=== PATIENT | female | born 1930 | race Caucasian/White ===

== ENCOUNTER → 2018-04-04 | Outpatient (CLI) | payer MEDICARE ==
[~2018-04-04] MED LIST: ASP325 PO; ASPI-757 PO; ATE50 PO; CARV12.577 PO; CLO75 PO; ENA5 PO; EYE DROPS; EZE10 PO; FAMC500T19 PO; LIS10 PO; LOPE-109 PO; LOR5 PO; LUTE20CA11 PO; MET500 PO; METF-421 PO; OLME1TAB67 PO; ONDA4TAB PO; PRE20 PO; SIM10 PO; TRA50 PO; TRIBENZOR PO
[2018-04-04 13:15] LABS: PLATELET COUNT, AUTOMATED 231 K/uL (150-450)
== END ==
LOC: LAB 12:54
PROVIDERS: ATTEND Family Medicine
DX: E11.9 Type 2 diabetes mellitus without complications (principal)
CPT/HCPCS: 36415; 82040; 82247; 82310; 82374; 82435; 82565; 82947; 83036; 84075; 84132; 84155; 84295; 84450; 84460; 84520; 85025

== ENCOUNTER 2018-12-15 15:58 | Inpatient (IN) | payer MEDICARE ==
[~2018-12-15] VITALS: Ht 160 cm; Wt 55.3 kg
[~2018-12-15 15:58] MED LIST changes: -METF-421 PO; +METF-452 PO
--- NOTE | 2018-12-15 16:02 | ER Report ---
History and Physical Time Seen By MD: 16:02 HPI/ROS CHIEF COMPLAINT: change in vision, confusion HISTORY OF PRESENT ILLNESS: PT started at noon yesterday with sudden onset of Headache, blurred vision, and confusion. Pt not sure if it was both eyes or just one eye. Pt took two aspirin yesterday and the headache went away. Daughter still feels that she is confused. PT has had no weakness. Pt does have hx of afib and is on aspirin 325 only for coagulation. Daughter concerned she may have uti. Pt denies dysuria at this time. No fevers. no uri symptoms. no change in bm. REVIEW OF SYSTEMS: Constitutional: No fever, no chills. Eyes: No discharge. + blurred vision ENT: No sore throat. Cardiovascular: No chest pain, no palpitations. Respiratory: No cough, no shortness of breath. Gastrointestinal: No abdominal pain, no vomiting. Genitourinary: No hematuria. Musculoskeletal: No back pain. Skin: No rashes. Neurological: + headache, + confusion Allergies: Coded Allergies: hydrocodone (Verified Allergy, Mild, 02/11/12) codeine (Verified Allergy, Unknown, 02/11/12) Home Meds Active Scripts Metformin Hcl (METFORMIN HCL) 1,000 Mg Tablet, 1 TAB PO BID for 90 Days, #180 TAB 4 Refills Prov:RIGOBERTO CHIRINOS MD 05/02/18 Reported Medications Loperamide Hcl (ANTI-DIARRHEAL) Unknown Strength Tablet, 1 TAB PO PRN 04/04/18 Aspirin (ASPIRIN) 325 Mg Tablet, 1 TAB PO HS, TAB 04/04/18 Carvedilol (Coreg) 12.5 Mg Tablet, 1 TAB PO HS 08/02/11 Past Medical/Surgical History pmhx: afib, hyperlipid, htn, pneumonia, divertic, osteoarhritis, dm Pshx: petty, hyster, total hip, left shoulder Reviewed Nurses Notes: Yes Old Medical Records Reviewed: Yes Hx Smoking: No Smoking Status: Never Smoker Hx Substance Use Disorder: No Hx Alcohol Use: No Constitutional Vital Sign - Last 24 Hours 12/15/18 12/15/18 12/15/18 12/15/18 16:06 16:07 17:00 17:30 Temp 98.3 Pulse 83 88 75 Resp 18 B/P (MAP) 171/106 171/106 (127) 158/93 (114) 152/90 (110) Pulse Ox 90 88 90 O2 Delivery Room Air Physical Exam General Appearance: The patient is alert, has no immediate need for airway protection and no signs of toxicity. Eyes: Pupils equal and round no pallor or injection, EOMI ENT: no pharyngeal erythema or exudates, Mucous membranes are moist, TM are nl b/l Respiratory: There are no retractions, lungs are clear to auscultation. Cardiovascular: Regular rate and rhythm. pulses are equal and symmetrical Gastrointestinal: Abdomen is soft and non tender, no masses, bowel sounds normal, no guarding, no rigidity or rebound Neurological: Cranial nerves II-XII grossly intact, no sensory or motor loss. Upper and lower strength 5/5 b/l; no dysmetria or pronator drift Skin: Warm and dry, no rashes. Musculoskeletal: Neck is supple non tender, no vertebral tenderness Extremities are non tender, non swollen and have full range of motion. DIFFERENTIAL DIAGNOSIS: After history and physical exam differential diagnosis was considered for stroke, intracranial bleed, uti, electrolyte abnl Medical Decision Making Data Points Result Diagram: 12/15/18 1620 12/15/18 1620 Laboratory Hematology Test 12/15/18 16:20 12/15/18 16:26 12/15/18 17:08 Red Blood Count 5.11 M/uL (4.17-5.56) Mean Corpuscular Volume 88.2 fL (80.0-96.0) Mean Corpuscular Hemoglobin 29.7 pg (26.0-33.0) Mean Corpuscular Hemoglobin Concent 33.7 g/dL (32.0-36.0) Red Cell Distribution Width 14.0 % (11.5-14.5) Mean Platelet Volume 8.8 fL (7.2-11.1) Neutrophils (%) (Auto) 67.8 % (39.4-72.5) Lymphocytes (%) (Auto) 19.1 % (17.6-49.6) Monocytes (%) (Auto) 10.6 % (4.1-12.4) Eosinophils (%) (Auto) 1.7 % (0.4-6.7) Basophils (%) (Auto) 0.8 % (0.3-1.4) Nucleated RBC Relative Count (auto) 0.1 /100WBC Neutrophils # (Auto) 4.1 K/uL (2.0-7.4) Lymphocytes # (Auto) 1.1 K/uL (1.3-3.6) Monocytes # (Auto) 0.6 K/uL (0.3-1.0) Eosinophils # (Auto) 0.1 K/uL (0.0-0.5) Basophils # (Auto) 0.1 K/uL (0.0-0.1) Nucleated RBC Absolute Count (auto) 0.01 K/uL Prothrombin Time 13.9 seconds (12.0-14.4) Prothromb Time International Ratio 1.06 Activated Partial Thromboplast Time 26 seconds (23-35) Sodium Level 138 mmol/L (137-145) Potassium Level 4.5 mmol/L (3.5-5.0) Chloride Level 102 mmol/L (98-107) Carbon Dioxide Level 26 mmol/L (22-31) Blood Urea Nitrogen 18 mg/dl (7-18) Creatinine 0.80 mg/dl (0.52-1.04) Glomerular Filtration Rate Calc > 60.0 Random Glucose 185 mg/dl (75-110) Calcium Level 9.5 mg/dl (8.4-10.2) Total Bilirubin 1.3 mg/dl (0.2-1.3) Aspartate Amino Transf (AST/SGOT) 24 U/L (0-35) Alanine Aminotransferase (ALT/SGPT) 14 U/L (0-56) Alkaline Phosphatase 71 U/L (0-126) Troponin I < 0.012 ng/ml Total Protein 8.3 g/dl (6.3-8.2) Albumin 4.3 g/dl (3.5-5.0) Whole Blood Glucose 163 mg/DL (75-110) Urine Color Yellow Urine Clarity Clear Urine pH 5.0 pH (4.8-9.5) Urine Specific Rubicon 1.016 Urine Protein Negative mg/dL (NEGATIVE) Urine Glucose (UA) Negative mg/dL (NEGATIVE) Urine Ketones Negative mg/dL (NEGATIVE) Urine Blood Small (NEGATIVE) Urine Nitrite Negative (NEGATIVE) Urine Bilirubin Negative (NEGATIVE) Urine Urobilinogen Negative mg/dL (0.2-1.9) Urine Leukocyte Esterase Negative (NEGATIVE) Urine RBC 1 /HPF (0-2/HPF) Urine WBC 2 /HPF (0-5/HPF) Urine Squamous Epithelial Cells Many /LPF (NONE-FEW) Urine Transitional Epithelial Cells Few /LPF (NONE-FEW) Urine Bacteria Few /HPF (NONE-FEW) Urine Mucus None /HPF (NONE-FEW) Chemistry Test 12/15/18 16:20 12/15/18 16:26 12/15/18 17:08 White Blood Count 6.0 k/uL (4.5-11.0) Red Blood Count 5.11 M/uL (4.17-5.56) Hemoglobin 15.2 g/dL (12.0-16.0) Hematocrit 45.1 % (34.0-47.0) Mean Corpuscular Volume 88.2 fL (80.0-96.0) Mean Corpuscular Hemoglobin 29.7 pg (26.0-33.0) Mean Corpuscular Hemoglobin Concent 33.7 g/dL (32.0-36.0) Red Cell Distribution Width 14.0 % (11.5-14.5) Platelet Count 235 K/uL (150-450) Mean Platelet Volume 8.8 fL (7.2-11.1) Neutrophils (%) (Auto) 67.8 % (39.4-72.5) Lymphocytes (%) (Auto) 19.1 % (17.6-49.6) Monocytes (%) (Auto) 10.6 % (4.1-12.4) Eosinophils (%) (Auto) 1.7 % (0.4-6.7) Basophils (%) (Auto) 0.8 % (0.3-1.4) Nucleated RBC Relative Count (auto) 0.1 /100WBC Neutrophils # (Auto) 4.1 K/uL (2.0-7.4) Lymphocytes # (Auto) 1.1 K/uL (1.3-3.6) Monocytes # (Auto) 0.6 K/uL (0.3-1.0) Eosinophils # (Auto) 0.1 K/uL (0.0-0.5) Basophils # (Auto) 0.1 K/uL (0.0-0.1) Nucleated RBC Absolute Count (auto) 0.01 K/uL Prothrombin Time 13.9 seconds (12.0-14.4) Prothromb Time International Ratio 1.06 Activated Partial Thromboplast Time 26 seconds (23-35) Glomerular Filtration Rate Calc > 60.0 Calcium Level 9.5 mg/dl (8.4-10.2) Total Bilirubin 1.3 mg/dl (0.2-1.3) Aspartate Amino Transf (AST/SGOT) 24 U/L (0-35) Alanine Aminotransferase (ALT/SGPT) 14 U/L (0-56) Alkaline Phosphatase 71 U/L (0-126) Troponin I < 0.012 ng/ml Total Protein 8.3 g/dl (6.3-8.2) Albumin 4.3 g/dl (3.5-5.0) Whole Blood Glucose 163 mg/DL (75-110) Urine Color Yellow Urine Clarity Clear Urine pH 5.0 pH (4.8-9.5) Urine Specific Rubicon 1.016 Urine Protein Negative mg/dL (NEGATIVE) Urine Glucose (UA) Negative mg/dL (NEGATIVE) Urine Ketones Negative mg/dL (NEGATIVE) Urine Blood Small (NEGATIVE) Urine Nitrite Negative (NEGATIVE) Urine Bilirubin Negative (NEGATIVE) Urine Urobilinogen Negative mg/dL (0.2-1.9) Urine Leukocyte Esterase Negative (NEGATIVE) Urine RBC 1 /HPF (0-2/HPF) Urine WBC 2 /HPF (0-5/HPF) Urine Squamous Epithelial Cells Many /LPF (NONE-FEW) Urine Transitional Epithelial Cells Few /LPF (NONE-FEW) Urine Bacteria Few /HPF (NONE-FEW) Urine Mucus None /HPF (NONE-FEW) Coagulation Test 12/15/18 16:20 Prothrombin Time 13.9 seconds Prothromb Time International Ratio 1.06 Activated Partial Thromboplast Time 26 seconds Urinalysis Test 12/15/18 17:08 Urine Color Yellow Urine Clarity Clear Urine pH 5.0 pH (4.8-9.5) Urine Specific Rubicon 1.016 Urine Protein Negative mg/dL (NEGATIVE) Urine Glucose (UA) Negative mg/dL (NEGATIVE) Urine Ketones Negative mg/dL (NEGATIVE) Urine Blood Small (NEGATIVE) Urine Nitrite Negative (NEGATIVE) Urine Bilirubin Negative (NEGATIVE) Urine Urobilinogen Negative mg/dL (0.2-1.9) Urine Leukocyte Esterase Negative (NEGATIVE) Urine RBC 1 /HPF (0-2/HPF) Urine WBC 2 /HPF (0-5/HPF) Urine Squamous Epithelial Cells Many /LPF (NONE-FEW) Urine Transitional Epithelial Cells Few /LPF (NONE-FEW) Urine Bacteria Few /HPF (NONE-FEW) Urine Mucus None /HPF (NONE-FEW) EKG/Imaging Imaging see report ED Course/Re-evaluation ED Course check labs, ct 12/15/2018 5:13:49 pm Radiologist called. Pt with a subacute stroke. Will speak with family. 12/15/2018 5:24:10 pm Spoke with family and they are now thinking about starting eliquis at a later time but not sure. Will speak with Neurology. 12/15/2018 5:43:[address] Edmonds, neurologist at [facility], who feels pt should be admitted to hospital. Recommend ECHO, CT angiogram then MRI. Recommended permissinve htn (as high as 220/120). As for anticoagulation he recommend holding all anticoagulation for 7-14 days post stroke due to high risk of bleed. He did no tfeel pt needs to be transferred as long as we would be able to get an echo in her admission. will speak with our hospitalist. [facility] accepts patient. Pt is happy to stay. Pt did not want to be transferred to [place]. Decision to Disposition Date: Dec 15, 2018 Decision to Disposition Time: 18:21 Depart Departure Latest Vital Signs Vital Signs Date Time Temp Pulse Resp B/P (MAP) Pulse Ox O2 Delivery O2 Flow Rate FiO2 12/15/18 17:30 75 152/90 (110) 90 12/15/18 16:06 98.3 18 Room Air Impression: Primary Impression: CVA (cerebral vascular accident) Additional Impression: Afib Condition: Condition Unchanged Disposition: Admitted from ER Referrals: RIGOBERTO CHIRINOS MD (PCP) Problem Qualifiers Primary Impression: CVA (cerebral vascular accident) CVA mechanism: unspecified Qualified Codes: I63.9 - Cerebral infarction, unspecified Additional Impression: Afib Atrial fibrillation type: chronic Qualified Codes: I48.2 - Chronic atrial fibrillation KADI DOMINGUEZ DO Dec 15, 2018 16:02
[2018-12-15 16:26] LABS: PLATELET COUNT, AUTOMATED 235 K/uL (150-450)
--- NOTE | 2018-12-15 16:32 | EKG ---
FACILITY: [facility] PATIENT NAME: PARAMJIT VALENZUELA : [id number] MR: [id number] V: [id number] EXAM DATE: ORDERING PHYSICIAN: KADI DOMINGUEZ TECHNOLOGIST: LORI Álvarez Reason : Blood Pressure : / mmHG Vent. Rate : 078 BPM Atrial Rate : 087 BPM P-R Int : 000 ms QRS Dur : 060 ms QT Int : 350 ms P-R-T Axes : 000 030 -87 degrees QTc Int : 399 ms Atrial fibrillation Baseline artifact in V3-4 makes strict interpretation difficult No previous ECGs available Confirmed by PUSHPA RAE ([id number]) on 12/15/2018 5:18:30 PM Referred By: Confirmed By:PUSHPA RAE
[2018-12-15 16:35] LABS: INR 1.06
--- NOTE | 2018-12-15 17:06 | RADIOLOGY IMAGING REPORT ---
[place] [facility] [place]IENT NAME: Natasha Tijerina : 1930 MR: [id number] V: [id number] EXAM DATE: ORDERING PHYSICIAN: KADI DOMINGUEZ TECHNOLOGIST: Location: [facility] [place] Patient: Natasha Tijerina : 1930 Visit/Account:[id number] Date of Sevice: 12/15/2018 Study: CT scan of the brain without intravenous contrast. Indication:Altered metal status Comparison study: November 25, 2010 Technique: Multiple axial images were obtained through the brain without the use of intravenous contr ast. One of the following dose optimization techniques was utilized in the performance of this exam: Autom ated exposure control; adjustment of the mA and/or kV according to the patient's size; or use of an i terative reconstruction technique. Specific details can be referenced in the facility's radiology C T exam operational policy. The examination demonstrates no evidence of acute intracranial hemorrhage. There is no evidence of ex tra-axial collection or hydrocephalus. There is moderate atrophy present. There is no evidence of intracranial mass lesion. There is loss of the watt-white junction along the anterior medial right occipital and posterior medi al right temporal region. This is consistent with an evolving infarct. This is subacute in appearance . There is no acute hemorrhage associated with this finding. The bony structures are unremarkable. IMPRESSION: Subacute stroke involving the medial posterior right temporal and medial anterior right o ccipital region. There is no acute hemorrhage associated with this finding. There is moderate atrophy noted. Dr. Dominguez was notified of these findings at 4:58 PM Report Dictated By: Lorenzo Martell at 12/15/2018 4:54 PM Report E-Signed By: Lorenzo Martell at 12/15/2018 5:03 PM WSN:[id number]
[2018-12-15 18:32] VITALS: BP_SYST 147; BP_SYST 166; BP_DIAS 104; BP_DIAS 123
[2018-12-15] MEDS ORDERED: METF-452 PO (19:21)
[2018-12-15] MEDS ORDERED: LABETALOL HCL 20 MG/4 ML SYR IVP PRN (19:50)
[2018-12-15] MEDS ORDERED: INFLUENZA VIRUS VAC 0.5ML SYR IM ONLY ONE (19:50)
--- NOTE | 2018-12-15 20:25 | History & Physical ---
History of Present Illness History of Present Illness 88yo female with a h/o T2DM, HTN and atrial fibrillation who was brought to the ER for confusion and difficulty with vision. Most of the history is from the patient's daughter. A couple of days ago the patient started reporting some vague headaches. Yesterday, the patient suddenly couldn't read print or see the television. She started having trouble finding words. Her daughter told the patient to sit in the living room and the patient walked to the wrong room. The daughter thought the patient had a UTI. The symptoms persisted today, so she brought her to the ER. The patient denies cp/palpitations/s ob/dysphagia/dysuria/n/v/f/c/diarrhea/focal weakness. The patient hasn't started any new medications. History Problems: (1) T2DM (type 2 diabetes mellitus) Status: Chronic (2) Hypertension Status: Chronic (3) Afib Status: Chronic (4) Electrocution (5) History of humerus fracture Status: Chronic (6) History of hip replacement Status: Chronic Home Meds Active Scripts Metformin Hcl (METFORMIN HCL) 1,000 Mg Tablet, 1 TAB PO HS for 90 Days, #180 TAB 4 Refills Prov:PUSHPA RAE MD 12/15/18 Reported Medications Aspirin (ASPIRIN) 325 Mg Tablet, 1 TAB PO HS, TAB 04/04/18 Carvedilol (Coreg) 12.5 Mg Tablet, 1 TAB PO HS 08/02/11 Discontinued Reported Medications Loperamide Hcl (ANTI-DIARRHEAL) Unknown Strength Tablet, 1 TAB PO PRN 04/04/18 Allergies: Coded Allergies: hydrocodone (Verified Allergy, Mild, 02/11/12) codeine (Verified Allergy, Unknown, 02/11/12) Patient History: FH: HTN (hypertension) BROTHER OR SISTER Other Social/Family Hx She lives near [place]. Her daughter helps manage her medications. The patient is . She rarely drinks alcohol and has never used tobacco. Hx Smoking: No Smoking Status: Never Smoker Caffeine Intake: Coffee, Soda Caffeine/Cups Per Day: 4 cups decaff Hx Alcohol Use: Yes (Once a month maybe a beer) Alcohol Used: Beer Hx Substance Use Disorder: No Social Drug Use: Never Review of Systems All Systems Reviewed/Normal: Yes, Except as Noted Exam Vital Signs Vital Signs Date Time Temp Pulse Resp B/P (MAP) Pulse Ox O2 Delivery O2 Flow Rate FiO2 12/15/18 18:32 98.7 70 16 166/104 (124) 92 Room Air General Appearance: Alert, Awake, No Acute Distress Neuro: Other (Visual field deficit in LUQ in eyes bilaterally on confrontational exam. EOMI. Pupils symmetric. Pearl Maker/abduction of fingers/hip flexion/dorsiflexion/plantar flexion is symmetric and strong. Normal sensation to light touch. ) Cardiovascular: Other (Irreg, irreg, no m/r/g.) Respiratory: Clear to Auscultation GI: Abd Soft and Non-Tender Extremities: No Edema Integumentary: No Jaundice, No Cyanosis Medical Decision Making Data Points Result Diagram: 12/15/18 1620 12/15/18 1620 Item Value Date Time Total Bilirubin 1.3 mg/dl 12/15/18 1620 Aspartate Amino Transf (AST/SGOT) 24 U/L 12/15/18 1620 Alanine Aminotransferase (ALT/SGPT) 14 U/L 12/15/18 1620 Alkaline Phosphatase 71 U/L 12/15/18 1620 Troponin I < 0.012 ng/ml 12/15/18 1620 Neutrophils (%) (Auto) 67.8 % 12/15/18 1620 Lymphocytes (%) (Auto) 19.1 % 12/15/18 1620 Monocytes (%) (Auto) 10.6 % 12/15/18 1620 Eosinophils (%) (Auto) 1.7 % 12/15/18 1620 Prothromb Time International Ratio 1.06 12/15/18 1620 Urine RBC 1 /HPF 12/15/18 1708 Urine WBC 2 /HPF 12/15/18 1708 Urine Squamous Epithelial Cells Many /LPF H 12/15/18 1708 Urine Transitional Epithelial Cells Few /LPF 12/15/18 1708 Urine Bacteria Few /HPF 12/15/18 1708 EKG / Imaging EKG Interpretation Vent. Rate : 078 BPM Atrial Rate : 087 BPM P-R Int : 000 ms QRS Dur : 060 ms QT Int : 350 ms P-R-T Axes : 000 030 -87 degrees QTc Int : 399 ms Atrial fibrillation Baseline artifact in V3-4 makes strict interpretation difficult No previous ECGs available Confirmed by PUSHPA RAE ([id number]) on 12/15/2018 5:18:[address] - Subacute stroke involving the medial posterior right temporal and medial anterior right occipital region. There is no acute hemorrhage associated with this finding. There is moderate atrophy noted. Assessment and Plan Problems: (1) CVA (cerebral vascular accident) Status: Acute Assessment & Plan: She presented with over 24 hours of LUQ visual field deficits bilaterally, word finding difficulty and mild confusion. She was found to have a subacute stroke in the medial posterior right temporal and medial anterior right occipital region by CT. Neurology was consulted and they recommended getting a CTA of the head/neck and echocardiogram. They recommended no anticoagulation for 7-14 days. Will ask OT/PT/ST to evaluate. (2) Afib Status: Chronic Assessment & Plan: Chronically in atrial fibrillation for many years. She has been just on ASA for stroke prophylaxis for a couple years secondary to a serious bleeding event after a fall on warfarin. However, the patient and daughter are willing to consider warfarin again with home monitoring. She is rate controlled on Coreg and it is just at HS. Will hold for now because of concern of dropping the blood pressure. Follow on telemetry. If the patient and daughter want to try warfarin, will have to do as an outpatient. See above. (3) Hypertension Status: Chronic Assessment & Plan: Chronically on Coreg. See above. (4) T2DM (type 2 diabetes mellitus) Status: Chronic Assessment & Plan: Chronically on Metformin. Will hold for the CTA. Glucose check AC and HS with SSI level 2 to cover. Check HgA1c. (5) History of humerus fracture Status: Chronic Assessment & Plan: The patient has had multiple fractures on the left with hardware in place. She is limited mobility/use in the arm secondary to it. (6) History of hip replacement Status: Chronic Assessment & Plan: She walks with a significant limp, per her daughter, since the repair. Copies to: JASON LOMELI MD ; Venous Thromboembolism Antithrombotics Is Pt On Any Antithrombotics?: No Exam Sepsis Risk: No Definite Risk Problem Qualifiers (1) CVA (cerebral vascular accident): CVA mechanism: unspecified Qualified Codes: I63.9 - Cerebral infarction, unspecified (2) Afib: Atrial fibrillation type: chronic Qualified Codes: I48.2 - Chronic atrial fibrillation PUSHPA RAE MD Dec 15, 2018 20:25
[2018-12-15] MEDS: INSULIN HUM LISPRO 100 UN/ML 3 ML VIAL SUBQ PRN (21:51)
[2018-12-15 22:32] VITALS: BP 139/87
[2018-12-16 02:57] VITALS: BP 176/116
[2018-12-16] MEDS ORDERED: NS(*) 0.9% 50 ML BAG 50 ML ONE (07:22)
[2018-12-16] MEDS ORDERED: IOPAMIDOL 76% 100 ML INFUS BTL 100 ML ONE (07:22)
[2018-12-16 07:25] VITALS: BP 145/108
--- NOTE | 2018-12-16 09:09 | RADIOLOGY IMAGING REPORT ---
FACILITY: [facility] - [place] PATIENT NAME: Natasha Tijerina : 1930 MR: [id number] V: [id number] EXAM DATE: ORDERING PHYSICIAN: PUSHPA RAE TECHNOLOGIST: Location: [facility] Patient: Natasha Tijerina : 1930 Visit/Account:[id number] Date of Sevice: 12/16/2018 EXAMINATION: CTA neck with IV contrast CTA head with IV contrast HISTORY: Subacute stroke. COMPARISON: Brain MRI from 10/09/[address] head from 12/15/2018. TECHNIQUE: Overlapping thin sections were obtained during a bolus of IV contrast from the aortic ar ch through the vertex. Reconstruction of the source data set includes multiplanar 2D in the bilateral oblique planes, and 3D coronal and axial thin slab MIP series. [employer] images have been store d on PACS. Stenosis of the internal carotid arteries are calculated using NASCET criteria. CONTRAST: 75 mL of IV Isovue-370. One of the following dose optimization techniques was utilized in the performance of this exam: Autom ated exposure control; adjustment of the mA and/or kV according to the patient's size; or use of an i terative reconstruction technique. Specific details can be referenced in the facility's radiology C T exam operational policy. FINDINGS: Aortic arch and great vessels: Configuration of the aortic arch is normal. There are moderate ather osclerotic calcifications of the arch with 50% stenosis at the origin of the right brachiocephalic ar honey. The proximal great vessels are moderately tortuous. There is patchy calcified plaque of the pro ximal left subclavian artery with up to 20% stenosis, and there is 50% stenosis of the left subclavia n artery due to soft plaque, after the left vertebral artery origin. Right CCA/ICA: The proximal common carotid artery is moderately tortuous. Calcified plaque of the c arotid bulb. 40% stenosis of the proximal internal carotid artery. Calcified plaque of the carotid si phon. Left CCA/ICA: Calcified plaque of the distal common carotid artery and the carotid bulb. 50% stenos is of the proximal internal carotid artery. The distal cervical internal carotid artery is moderately tortuous. Calcified plaque of the carotid siphon. Vertebrobasilar: The left vertebral artery is dominant with calcified plaque at the origin causing 50% stenosis. The right vertebral artery is smaller than the left, and there is occlusion in its orig in. Both vertebral arteries contribute to the basilar artery and there is some reflux of contrast int o the intradural and distal cervical right vertebral artery from the opposite side. [place]: Patent anterior communicating artery and bilateral small posterior communicating arteries. VASILIY circulation: Negative. MCA circulation: Negative. IT ASSISTANT circulation: The bilateral P1 and P2 segments are patent and symmetric. There is diminished cor tical branching in the right IT ASSISTANT territory in the area of subacute infarct. Additional non-angiographic findings: Mild degenerative changes of the spine. The thyroid is mildly heterogeneous with a coarse calcificati on in the right lobe. IMPRESSION: 1. Diminished cortical branching in the right IT ASSISTANT territory in the area of subacute infarct. No clot in the right P1 and P2 segments. 2. 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 The right vertebr al artery is the hypoplastic vertebral artery. 3. Atherosclerotic calcified plaque of the aortic arch with 50% stenosis at the origin of the right b rachiocephalic artery, patchy stenosis of the proximal left subclavian artery of up to 20%, and 50% s tenosis of the left subclavian artery distal to the left vertebral artery origin. 4. Calcified atherosclerotic plaque of the right carotid bulb with 40% stenosis of the proximal right internal carotid artery. 5. Calcified atherosclerotic plaque of the left carotid bulb with 50% stenosis of the proximal left i nternal carotid artery. Report Dictated By: Shey Rhoades MD at 12/16/2018 8:39 AM Repor E-Signed By: Shey Rhoades MD at 12/16/2018 9:05 AM WSN:[id number]
--- NOTE | 2018-12-16 09:10 | RADIOLOGY IMAGING REPORT ---
FACILITY: [facility] - [place] PATIENT NAME: Natasha Tijerina : 1930 MR: [id number] V: [id number] EXAM DATE: ORDERING PHYSICIAN: PUSHPA RAE TECHNOLOGIST: Location: [facility] Patient: Natasha Tijerina : 1930 Visit/Account:[id number] Date of Sevice: 12/16/2018 EXAMINATION: CTA neck with IV contrast CTA head with IV contrast HISTORY: Subacute stroke. COMPARISON: Brain MRI from 10/09/[address] head from 12/15/2018. TECHNIQUE: Overlapping thin sections were obtained during a bolus of IV contrast from the aortic ar ch through the vertex. Reconstruction of the source data set includes multiplanar 2D in the bilateral oblique planes, and 3D coronal and axial thin slab MIP series. Advertising Director images have been store d on PACS. Stenosis of the internal carotid arteries are calculated using NASCET criteria. CONTRAST: 75 mL of IV Isovue-370. One of the following dose optimization techniques was utilized in the performance of this exam: Autom ated exposure control; adjustment of the mA and/or kV according to the patient's size; or use of an i terative reconstruction technique. Specific details can be referenced in the facility's radiology C T exam operational policy. FINDINGS: Aortic arch and great vessels: Configuration of the aortic arch is normal. There are moderate ather osclerotic calcifications of the arch with 50% stenosis at the origin of the right brachiocephalic ar honey. The proximal great vessels are moderately tortuous. There is patchy calcified plaque of the pro ximal left subclavian artery with up to 20% stenosis, and there is 50% stenosis of the left subclavia n artery due to soft plaque, after the left vertebral artery origin. Right CCA/ICA: The proximal common carotid artery is moderately tortuous. Calcified plaque of the c arotid bulb. 40% stenosis of the proximal internal carotid artery. Calcified plaque of the carotid si phon. Left CCA/ICA: Calcified plaque of the distal common carotid artery and the carotid bulb. 50% stenos is of the proximal internal carotid artery. The distal cervical internal carotid artery is moderately tortuous. Calcified plaque of the carotid siphon. Vertebrobasilar: The left vertebral artery is dominant with calcified plaque at the origin causing 50% stenosis. The right vertebral artery is smaller than the left, and there is occlusion in its orig in. Both vertebral arteries contribute to the basilar artery and there is some reflux of contrast int o the intradural and distal cervical right vertebral artery from the opposite side. [place]: Patent anterior communicating artery and bilateral small posterior communicating arteries. VASILIY circulation: Negative. MCA circulation: Negative. PRODUCE DEPARTMENT SUPERVISOR circulation: The bilateral P1 and P2 segments are patent and symmetric. There is diminished cor tical branching in the right PRODUCE DEPARTMENT SUPERVISOR territory in the area of subacute infarct. Additional non-angiographic findings: Mild degenerative changes of the spine. The thyroid is mildly heterogeneous with a coarse calcificati on in the right lobe. IMPRESSION: 1. Diminished cortical branching in the right PRODUCE DEPARTMENT SUPERVISOR territory in the area of subacute infarct. No clot in the right P1 and P2 segments. 2. 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 The right vertebr al artery is the hypoplastic vertebral artery. 3. Atherosclerotic calcified plaque of the aortic arch with 50% stenosis at the origin of the right b rachiocephalic artery, patchy stenosis of the proximal left subclavian artery of up to 20%, and 50% s tenosis of the left subclavian artery distal to the left vertebral artery origin. 4. Calcified atherosclerotic plaque of the right carotid bulb with 40% stenosis of the proximal right internal carotid artery. 5. Calcified atherosclerotic plaque of the left carotid bulb with 50% stenosis of the proximal left i nternal carotid artery. Report Dictated By: Shey Rhoades MD at 12/16/2018 8:39 AM Repor E-Signed By: Shey Rhoades MD at 12/16/2018 9:05 AM WSN:[id number]
--- NOTE | 2018-12-16 11:12 | Hospitalist Progress Note ---
Subjective Progress Notes Subjective She was admitted with subacute stroke. She has no complaints this morning. She had no acute events overnight. Patient Complains of: Cardiovascular: No: Chest Pain Respiratory: No: Shortness of Breath Physical Exam Vital Signs Date Time Temp Pulse Resp B/P (MAP) Pulse Ox O2 Delivery O2 Flow Rate FiO2 12/16/18 04:24 84 12/16/18 02:57 98.6 18 176/116 (136) 94 Nasal Cannula 1.0 Intake and Output 12/16/18 00:00 Output Total 150 ml Balance -150 ml Output Urine Total 150 ml # Voids 2 General Appearance: Alert, Awake, No Acute Distress, Afebrile Neuro: No Gross deficits Cardiovascular: Regular Rate and Rhythm Respiratory: No Respiratory Distress, Clear to Auscultation GI: Soft and Non-Tender Extremities: Warm, Perfused; No Edema Psych: Alert & Oriented X3, Appropriate Mood & Affect Result Diagram: 12/15/18 1620 12/15/18 1620 Assessment and Plan Problems: (1) CVA (cerebral vascular accident) Status: Acute Assessment & Plan: She presented with over 24 hours of LUQ visual field deficits bilaterally, word finding difficulty and mild confusion. She was found to have a subacute stroke in the medial posterior right temporal and medial anterior right occipital region by CT. Neurology was consulted and they recommended getting a CTA of the head/neck, which showed 40-50% stenosis in carotids and diminished cortical branching in the right POLICE RECORDS CLERK territory in the area of infarct and occlusion of the right vertebral artery and echocardiogram is pending. They recommended no anticoagulation for 7-14 days. Will ask OT/PT/ ST to evaluate. (2) Afib Status: Chronic Assessment & Plan: Chronically in atrial fibrillation for many years. She has been just on ASA for stroke prophylaxis for a couple years secondary to a serious bleeding event after a fall on warfarin. However, the patient and daughter are willing to consider warfarin again with home monitoring. She is rate controlled on Coreg and it is just at HS. Will hold for now because of concern of dropping the blood pressure. Follow on telemetry. If the patient and daughter want to try warfarin, will have to do as an outpatient. See above. (3) Hypertension Status: Chronic Assessment & Plan: Chronically on Coreg. See above. (4) T2DM (type 2 diabetes mellitus) Status: Chronic Assessment & Plan: Chronically on Metformin. Will hold for the CTA. Glucose check AC and HS with SSI level 2 to cover. HgA1c is 7.6. (5) History of humerus fracture Status: Chronic Assessment & Plan: The patient has had multiple fractures on the left with hardware in place. She is limited mobility/use in the arm secondary to it. (6) History of hip replacement Status: Chronic Assessment & Plan: She walks with a significant limp, per her daughter, since the repair. Exam Sepsis Risk: No Definite Risk Problem Qualifiers (1) CVA (cerebral vascular accident): CVA mechanism: unspecified Qualified Codes: I63.9 - Cerebral infarction, unspecified (2) Afib: Atrial fibrillation type: chronic Qualified Codes: I48.2 - Chronic atrial fibrillation (3) Hypertension: Hypertension type: essential hypertension Qualified Codes: I10 - Essential (primary) hypertension MATHEW PATE CHECK CASHIER Dec 16, 2018 11:12
[2018-12-16 13:08] VITALS: Ht 160 cm; Wt 55.3 kg
--- NOTE | 2018-12-16 15:48 | NUR ---
Physical Therapy Impression PT eval complete. Pt was living independently prior to hospitalization. Currently Pt requires Min A for sit>supine, CGA to stand and CGA/Min A with cane and hand-hold assist to ambulate. Recommend either acute rehab or short-term subacute rehab prior to returning home living independently. Physical Therapy Goals 1. Mod I bed mobility. 2. Mod I transfers. 3. Mod I gait x 150' with appropriate assistive device. 4. Ascend/descend 3 stairs SBA. Patient's Goals
[2018-12-16 17:20] VITALS: BP 144/93
--- NOTE | 2018-12-16 17:31 | SPEECH INITIAL EVALUATION ---
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 BACKGROUND The patient is an 88-year old female admitted to [facility] on 12/15/18 with confusion, headaches, word finding deficits, and visual changes. CT scan revealed subacute CVA in the medial posterior R temporal and medial anterior R occipital region. Pt was referred for ST evaluation to analyze cognitive linguistic status and possible dysphagia s/p CVA. Primary Medical Diagnosis: CVA Past Medical Hx: Afib, HTN, DM2 Pain Scale (0-10): patient w/ no reports of pain. LOC / Participation: alert, cooperative Motor Speech: WFL; non-apraxic; non-dysarthric Voice: WFL Dysphagia: swallow status was screened with 3oz water test. No overt signs of aspiration or dysphagia. RN reporting no observed deficits during participation in meals or medication administration. COGNITIVE LINGUISTIC ASSESSMENT Pt was seen at the bedside for cognitive linguistic analysis using the [place] Cognitive Assessment, (Version 7.3) paired with informal evaluation procedures. The pts daughter and friend were present throughout encounter. The pt obtained a score of 20/30 on the MOCA, exhibiting mild to moderate cognitive linguistic deficits in the areas of temporal orientation, short-term memory, executive functioning, and visuospatial skills. Most notable area of impairment was seen in short-term memory. The pt struggled to retain task instructions, requiring multiple repetitions to consolidate information. The pts daughter indicated this appears to be near baseline with gradual decline in short-term memory for unspecified time period. Daughter provides assistance for completion of all IADL and some ADL tasks. She reports that the pt is visited 2x/day by a family member. Visuospatial deficits are new, with difficulty perceiving information in the LUQ. Relative areas of strength were noted in environmental orientation, situational orientation, attention, immediate memory, working memory, mental manipulations, mental abstraction, and expressive/receptive language skills. Word finding deficits appear to have resolved. The pt was appropriate in conversation with knowledge of medical etiology, although she does not recall events leading up to hospitalization or time spent in the ED. At this time, the pt appears to be functioning mildly below baseline from a strictly cognitive-linguistic standpoint. Daughter described existing systems to support the pt in her home environment, including use of a pillbox with external reminders for medication administration. Daughter did not endorse any history of medication errors. Recommend continued, daily supervision upon return to prior living environment including assistance with all IADL tasks. Acute visuospatial deficits may place the pt at an elevated risk for difficulty perceiving external compensatory systems, and difficulty attending to environmental obstacles. Brief course of ST is indicated in an acute care environment to provide patient and caregiver instruction in strategies to compensate for novel deficits and to support safe transition to prior living environment. RECOMMENDATIONS 1. ST 3x/wk 2. Short-term subacute rehab prior to home discharge with daily supervision and support for all IADLs (medication management, transportation, financial report service sales agent, and appointment management) PROGNOSIS: Good, strong family support, motivation to participate PLAN OF CARE Short Term Goals 1. The patient will independently utilize visual scanning strategies to attend to environmental obstacles and perceive established compensatory memory systems. 2. The patient will refer to external compensatory systems with min cues to support deficits in short-term memory for improved participation in daily routine. Thank you for this referral. Please call [phone] to contact with any questions or concerns. Suellen Bill M.S., CCC-ACUTE CARE ASSISTANT [*] MISHAD
[2018-12-16] MEDS: INSULIN HUM LISPRO 100 UN/ML 3 ML VIAL SUBQ PRN ×2 (17:40→21:09)
[2018-12-16 18:41] VITALS: BP 145/93
[2018-12-16 21:45] VITALS: BP 168/102
[2018-12-17] VITALS (7 sets, daily range): BP systolic 133–178; BP diastolic 73–124
--- NOTE | 2018-12-17 08:33 | NUR ---
Physical Therapy Impression Pt sitting at EOb when PT arrived, agreeable to therapy session. CGA for transfers with PT providing verbal cues for sequencing and safety with use of RW. Ambulation x150' with RW, pt with moderate path deviation and impaired dynamic balance. Rec further acute or subacute rehab prior to d/c. Physical Therapy Goals 1. Mod I bed mobility. 2. Mod I transfers. 3. Mod I gait x 150' with appropriate assistive device. 4. Ascend/descend 3 stairs SBA. Patient's Goals
--- NOTE | 2018-12-17 10:56 | Hospitalist Progress Note ---
Subjective Progress Notes Subjective She was admitted with subacute stroke. She feels she is getting stronger everyday. The family would like to go to rehab prior to discharge home. Patient Complains of: Cardiovascular: No: Chest Pain Respiratory: No: Shortness of Breath Physical Exam Vital Signs Date Time Temp Pulse Resp B/P (MAP) Pulse Ox O2 Delivery O2 Flow Rate FiO2 12/17/18 09:37 86 12/17/18 07:57 93 Nasal Cannula 1.0 12/17/18 03:00 98.6 164/93 (116) 12/16/18 18:41 16 Intake and Output 12/17/18 00:00 Intake Total 0 ml Balance 0 ml Intake Oral 0 ml # Voids 6 General Appearance: Alert, Awake, No Acute Distress, Afebrile Neuro: No Gross deficits Cardiovascular: Regular Rate and Rhythm Respiratory: No Respiratory Distress, Clear to Auscultation Psych: Alert & Oriented X3, Appropriate Mood & Affect Result Diagram: 12/15/18 1620 12/15/18 1620 Assessment and Plan Problems: (1) CVA (cerebral vascular accident) Status: Acute Assessment & Plan: She presented with over 24 hours of LUQ visual field deficits bilaterally, word finding difficulty and mild confusion. She was found to have a subacute stroke in the medial posterior right temporal and medial anterior right occipital region by CT. Neurology was consulted and they recommended getting a CTA of the head/neck, which showed 40-50% stenosis in carotids and diminished cortical branching in the right PLANT MAINTENANCE ENGINEER territory in the area of infarct and occlusion of the right vertebral artery and echocardiogram showed enlarged atria (secondary to atrial fibrillation). They recommended no anticoagulation for 7-14 days. Will ask OT/PT/ST to evaluate. (2) Afib Status: Chronic Assessment & Plan: Chronically in atrial fibrillation for many years. She has been just on ASA for stroke prophylaxis for a couple years secondary to a serious bleeding event after a fall on warfarin. However, the patient and daughter are willing to consider warfarin again with home monitoring. She is rate controlled on Coreg and it is just at HS. Follow on telemetry. If the patient and daughter want to try warfarin, will have to do as an outpatient. See above. (3) Hypertension Status: Chronic Assessment & Plan: Chronically on Coreg. See above. (4) T2DM (type 2 diabetes mellitus) Status: Chronic Assessment & Plan: Chronically on Metformin. Will hold for the CTA. Glucose check AC and HS with SSI level 2 to cover. HgA1c is 7.6. (5) History of humerus fracture Status: Chronic Assessment & Plan: The patient has had multiple fractures on the left with hardware in place. She is limited mobility/use in the arm secondary to it. (6) History of hip replacement Status: Chronic Assessment & Plan: She walks with a significant limp, per her daughter, since the repair. Exam Sepsis Risk: No Definite Risk Problem Qualifiers (1) CVA (cerebral vascular accident): CVA mechanism: unspecified Qualified Codes: I63.9 - Cerebral infarction, unspecified (2) Afib: Atrial fibrillation type: chronic Qualified Codes: I48.2 - Chronic atrial fibrillation (3) Hypertension: Hypertension type: essential hypertension Qualified Codes: I10 - Essential (primary) hypertension MATHEW PATEP Dec 17, 2018 10:56
--- NOTE | 2018-12-17 12:56 | NUR ---
Occupational Therapy Impression Pt. ambulated approx. 150 feet with use of FWW on 1 L of O2 with SPO2 kept above 90%. Pt. required CGA to perform toileting activities. OT recommends short term subacute rehab upon d/c. Continue with POC. Occupational Therapy Goals 1) Pt will be CGA toileting. 2) Pt will be SBA UB/LB dressing. Patient's Goal
[2018-12-17] MEDS: INSULIN HUM LISPRO 100 UN/ML 3 ML VIAL SUBQ PRN (17:21)
[2018-12-17] MEDS: APIXABAN 2.5 MG TABLET PO SCH (20:30)
[2018-12-17] MEDS ORDERED: CARVEDILOL 6.25 MG TAB PO SCH (21:00)
[2018-12-17] MEDS ORDERED: ASPIRIN 325 MG TAB PO SCH (21:00)
[2018-12-17] MEDS ORDERED: metFORMIN HCL 500 MG TAB PO SCH (21:00)
[2018-12-18 01:56] VITALS: BP 163/109
[2018-12-18 07:37] VITALS: BP 114/73
--- NOTE | 2018-12-18 08:30 | NUR ---
Unable to obtain WBG prior to patient eating breakfast. Addendum: 12/18/18 at 1401 by NICKY BILL RN Amended: Links added.
[2018-12-18] MEDS: APIXABAN 2.5 MG TABLET PO SCH (09:47)
--- NOTE | 2018-12-18 10:04 | RADIOLOGY IMAGING REPORT ---
[place] [facility] [place] NAME: Natasha Tijerina : 1930 MR: [id number] V: [id number] EXAM DATE: ORDERING PHYSICIAN: MATHEW PATE TECHNOLOGIST: Location: [facility] Patient: Natasha Tijerina : 1930 Visit/Account:[id number] Date of Sevice: 12/18/2018 CHEST SINGLE AP HISTORY: Cough. COMPARISON: November 25, 2010. FINDINGS: Cardiomediastinal contours: The heart is mildly enlarged. There is calcification of what may be the mitral valve annulus given the patient rotation. The aortic arch is calcified. Lungs and pleura: Linear density left lung base has the appearance of scar. There is no acute infilt rate. Bones/soft tissues: There are no findings of a fracture. There appears to have been resection of the left humeral head. IMPRESSION: 1. Cardiomegaly without active disease in the chest. 2. Postoperative changes left shoulder. Report Dictated By: Chance Kim MD at 12/18/2018 9:58 AM Report E-Signed By: Chance Kim MD at 12/18/2018 10:00 AM WSN:[id number]
--- NOTE | 2018-12-18 11:00 | Transfer Summary ([facility]) ---
Transfer Summary ([facility]) Problems: (1) CVA (cerebral vascular accident) Status: Acute Assessment & Plan: She presented with over 24 hours of LUQ visual field deficits bilaterally, word finding difficulty and mild confusion. She was found to have a subacute stroke in the medial posterior right temporal and medial ant erior right occipital region by CT. Neurology was consulted and they recommended getting a CTA of the head/neck, which showed 40-50% stenosis in carotids and diminished cortical branching in the right PAPERBOARD BOXES ESTIMATOR territory in the area of infarct and occlusion of the right vertebral artery and echocardiogram showed enlarged atria (secondary to atrial fibrillation). Neurology recommended no anticoagulation for 7-14 days. She was started on Eliquis overnight 12/17. The family would still like to think about the possibility of Warfarin. She is being transferred to [facility] for further rehabilitation. (2) Afib Status: Chronic Assessment & Plan: Chronically in atrial fibrillation for many years. She has been just on ASA for stroke prophylaxis for a couple years secondary to a serious bleeding event after a fall on warfarin. However, the patient and daughter are considering warfarin again with home monitoring. She is rate controlled on Coreg and it is just at HS. She was followed on telemetry and maintained atrial fibrillation throughout admission. (3) Hypertension Status: Chronic Assessment & Plan: Chronically on Coreg. See above. (4) T2DM (type 2 diabetes mellitus) Status: Chronic Assessment & Plan: Chronically on Metformin. Metformin held 48 hours post CTA. Glucose check AC and HS with SSI level 2 to cover. HgA1c is 7.6. (5) History of humerus fracture Status: Chronic Assessment & Plan: The patient has had multiple fractures on the left with hardware in place. She is limited mobility/use in the arm secondary to it. (6) History of hip replacement Status: Chronic Assessment & Plan: She walks with a significant limp, per her daughter, since the repair. Latest Vital Signs Vital Signs Date Time Temp Pulse Resp B/P (MAP) Pulse Ox O2 Delivery O2 Flow Rate FiO2 12/18/18 10:18 Nasal Cannula 12/18/18 07:37 98.6 78 20 114/73 (87) 93 12/18/18 01:56 0.5 Result Diagram: 12/15/18 1620 12/15/18 162 Condition: Improved Disposition: SNF/NH Treatment Goals and Plan Patient requires shelter for [facility] and is ready for admission to [facility]. Any change in condition is described below. Problem Qualifiers (1) CVA (cerebral vascular accident): CVA mechanism: unspecified Qualified Codes: I63.9 - Cerebral infarction, unspecified (2) Afib: Atrial fibrillation type: chronic Qualified Codes: I48.2 - Chronic atrial fibrillation (3) Hypertension: Hypertension type: essential hypertension Qualified Codes: I10 - Essential (primary) hypertension MATHEW PATE CHRISTIAN COUNSELOR Dec 18, 2018 11:00
[2018-12-18] MEDS ORDERED: metFORMIN HCL 500 MG TAB PO SCH (21:00)
[2018-12-18] MEDS ORDERED: METFORMIN HCL PO SCH (21:00)
== END 2018-12-18 10:35 | DRG 66 ==
LOC: ER 16:07 → MED 18:10 → UNDOADMIN 18:10
PROVIDERS: ADMIT Internal Medicine; ATTEND Internal Medicine
DX: I63.9 Cerebral infarction, unspecified (principal); I48.2 Chronic atrial fibrillation; I10 Essential (primary) hypertension; E11.9 Type 2 diabetes mellitus without complications; Z79.84 Long term (current) use of oral hypoglycemic drugs; Z88.5 Allergy status to narcotic agent; Z90.49 Acquired absence of other specified parts of digestive tract; Z90.710 Acquired absence of both cervix and uterus; Z79.82 Long term (current) use of aspirin
CPT/HCPCS: 36416; 70450; 70496; 70498; 71045; 81001; 82040; 82247; 82310; 82374; 82435; 82565; 82947; 82948; 83036; 84075; 84132; 84155; 84295; 84450; 84460; 84484; 84520; 85025; 85610; 85730; 87088; 92523; 93005; 93306; 97162; 97165; 99284; A4353; J7050; Q9967

== ENCOUNTER 2018-12-18 10:35 | Inpatient (IN) | payer MEDICARE ==
[2018-12-16 13:08] VITALS: Ht 160 cm; Wt 59.0 kg
[~2018-12-18] VITALS: Ht 160 cm; Wt 59.0 kg
[2018-12-18 11:00] VITALS: BP 98/55
[2018-12-18] MEDS ORDERED: APIXABAN 2.5 MG TABLET PO SCH (11:11)
[2018-12-18] MEDS ORDERED: CARVEDILOL 6.25 MG TAB PO SCH (11:11)
--- NOTE | 2018-12-18 11:24 | Consultant Pharmacy Review ---
Cap Jewel Plate Assembler Review Medication Review Do All Mecications have a Diag: Yes Other General Cautions * Search * Interaction Analysis * Top of Form 1 Bottom of Form 1 Top of Form 2 Bottom of Form 2 * * * * Print * Help Lexicomp Interaction Analysis A = No known interaction C = Monitor therapy X = Avoid combination B = No action needed D = Consider therapy modification Drugs in this analysis: Coreg; Eliquis; MetFORMIN * Drug-Drug Interactions * B Coreg (P-glycoprotein/ABCB1 Inhibitors) Eliquis (Apixaban) Depends on Additional drug/group Disclaimer: Readers are advised that decisions regarding drug therapy must be based on the independent judgment of the clinician, changing information about a drug (eg, as reflected in the literature and political science professor's most current product information), and changing medical practices. * Terms & Conditions // * Disclaimer// * Privacy Policy * Lexicomp on [employer] * Lexicomp on [employer] * Get [employer] [place] 2019 [employer] and its affiliates and/or licensors. All Rights Reserved. Pneumococcal Vaccine HX Pneumo Vac ([id number]): Yes (UNSURE OF DATE) ALLIE RUANO Dec 18, 2018 11:24
--- NOTE | 2018-12-18 13:24 | NUR ---
Occupational Therapy Impression Pt. required verbal cues to perform sit <> stand transfers from chair, for correct (safe) hand placement. Pt. observed to pull up on walker from seated position as well as not reach back for chair prior to sitting down. Continue with POC. Occupational Therapy Goals 1. Pt. to perform dressing activities with I. 2. Pt. to perform toileting activities with I. 3. Pt. to perform showering activities with SBA. 4. Pt. to improve Moni Index of ADL score by 2 points. 5. Pt. to perform grooming/ hygiene activities with I, standing sinkfront. Patient's Goal
--- NOTE | 2018-12-18 13:36 | OT ECF NOTE ---
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 Occupational Therapy Evaluation Date: 12-18-18 SUBJECTIVE: Prior Hospitalization: Pt. admitted to [facility] medical floor from 12-15-18 to 12-18-18. Prior Level of Function: Pt. was independent with all ADL activities (with the exception of bathing). Pt. had assistance from daughter for IADL activities (grocery shopping, med management). Prior Living Status: Single level house Assist by family Community Services: Support adequate Home Accessibility: Stairs without rails All needs on one level Tub/shower combination Equipment Owned: Front wheeled walker Cane Tub/shower chair Medical Complications/Past Medical History: Please refer to medical chart for details. Psychosocial Support: Supportive daughter, son and friend. Pain Scale (0-10): 0/10 OBJECTIVE: Strength: MMT: Right Left Shoulder Flexion [*] [*] Elbow Flexion [*] [*] Wrist Extension [*] [*] Bronze Chaser [*] [*] (5= normal, 4= good, 3= fair, 2= poor, 1= trace) ROM: Functional Transfer: Assistive Device: Front wheeled walker Gait belt Transfer Ability: CGA ADL: Upper body dressing: N/T Assistive device: Upper body dressing ability: Lower body dressing: N/T Assistive device: Lower body dressing ability: Toileting: N/T Assistive device: Toileting ability: Grooming/hygiene: N/T Assistive device: Grooming ability: Bathing: N/T Assistive device: Bathing ability: Standardized Assessment: Moni Index of Activities of Daily Living- Pt. scored a 13/20 on this index upon initial evaluation. ASSESSMENT: Pt. is a 88 year old female who was admitted with subacute stroke in medial posterior right temporal and medial anterior right occipital lobe. Pt. resides alone in between [facility], in a one level home with stairs to access. Pt. has family to assist who reside nearby. Pt. was mostly Independent with all ADL activities (with the exception of showering) with assistance for IADL activities (including med management). Pt. would benefit from more therapy prior to d/c to regain prior level of independence. Problem List/Current Limitations: Decreased activity fior Generalized weakness Poor safety awareness Short Term Goals: 1. Pt. to perform dressing activities with I. 2. Pt. to perform toileting activities with I. 3. Pt. to perform showering activities with SBA. 4. Pt. to improve Moni Index of ADL score by 2 points. 5. Pt. to perform grooming/ hygiene activities with I, standing sink front. Zipper Slide Attacher Goals: Return home. Patient Goals: Return home. Rehabilitation Prognosis: Fair Barriers to Discharge: Resides alone, advanced age PLAN: The patient will benefit from skilled occupational therapy services 5 times per week for 2 weeks including: Ther ex ADL training Safety training Ther act IADL training Transfer training Adaptive equip training Bed mobility Thank you for this referral. If you have any questions, concerns, or comments about this report or plan, please contact me at . Elisabeth Hidalgo OTR/L Occupational Therapist AUNG
--- NOTE | 2018-12-18 15:43 | NUR ---
Physical Therapy Impression PT eval complete. Please see EMR Other Reports for details. Physical Therapy Goals 1. Independent bed mobility. 2. Mod I transfers using appropriate assistive device. 3. Ambulation x 150' with appropriate assistive device. 4. Ascend/descend 3 stairs CGA. 5. Improve TUG to 32 seconds (by 2 seconds to achieve meaningful change). Patient's Goals
--- NOTE | 2018-12-18 15:50 | PT ECF NOTE ---
Type of Note: Initial Note Primary Medical Diagnosis: subacute stroke, A-fib (also of note is chronic L humerus fracture and previous PJ for which Pt still has a limp). Physical Therapy Evaluation Date: 12/18/18 SUBJECTIVE: Prior Hospitalization: [facility] acute 12/15/18-12/18/18 Prior Level of Function: Pt was Mod I with functional mobility with use of cane. Pt had assistance with bathing from her daughter and cooking from her son-in-law. Prior Living Status: Single level house, Alone, Assist by family Community Services: No known needs Home Accessibility: 3 Stairs with rails/"rope" Equipment Owned: Front wheeled walker, Cane Medical Complications/Past Medical History: See [employer] for full list. Chronic L humerus fx; previous PJ for which Pt still has a limp Psychosocial Support: Supportive family Pain Scale (0-10): 0 OBJECTIVE: Bed Mobility: not observed at eval Transfers: CGA from chair Assistive Device: Front wheeled walker Gait: CGA x 30' Assistive device: Front wheeled walker Stairs: not observed at eval Timed Up and Go (>12 seconds indicated increased risk for falls): 34 seconds using RW ASSESSMENT: Pt presents with decreased independence with functional mobility compared to baseline. Pt would benefit from skilled PT for functional mobility training in order to return to prior level of function. Problem List/Current Limitations: Decreased activity tolerance, Decreased strength, Decreased balance, Generalized weakness Short Term Goals: 1. Independent bed mobility. 2. Mod I transfers using appropriate assistive device. 3. Ambulation x 150' with appropriate assistive device. 4. Ascend/descend 3 stairs CGA. 5. Improve TUG to 32 seconds (by 2 seconds to achieve meaningful change). Custodial Goals: Return to living semi-independently Patient Goals: Return home [facility] Prognosis: Good Barriers for Discharge: none identified PLAN: The patient will benefit from skilled physical therapy services 5 times per week for 2 weeks including: Therapeutic Exercise, Therapeutic Activities, Transfer Training, Gait Training, Stair Training, Manual Therapy, ADL's, Safety Training, Neuromuscular Re-educ., Pt/Caregiver Training, Bed Mobility Thank you for this referral. If you have any questions, concerns, or comments about this report or plan, please contact me at . Lashawn Vargas, PT, DPT, GCS MTDD
[2018-12-18 15:55] VITALS: BP 106/70
--- NOTE | 2018-12-18 19:46 | NUR ---
Patient up and found roaming the halls. Staff discussed with patient the importance of calling before getting up but she continues to get up without calling. Ramonita is forgetful and in unable to remember these instructions. Gait is unsteady at times. To prevent falls and potential injuries a TABS unit and bed alarm will be used tonight. Will reassess the need for alarms again tomorrow.
[2018-12-18] MEDS: INSULIN HUM LISPRO 100 UN/ML 3 ML VIAL SUBQ PRN (20:20)
[2018-12-18] MEDS: CARVEDILOL 3.125 MG TAB PO SCH (20:20)
[2018-12-18] MEDS: metFORMIN HCL 500 MG TAB PO SCH (20:20)
[2018-12-19 07:30] VITALS: BP 140/70
--- NOTE | 2018-12-19 11:50 | NUR ---
Physical Therapy Impression Good ability to complete bed mobility with SBA and no bed railing with HOB flat. PT cues to push up from surface for STS transfers, pt completed with CGA. Pt with significant L) sided lean with ambulation with slight tilt to left with walker, PT provided cues for forward ambulation and safety, x100' with RW and CGA. PT instruction for standing LE ther-ex with RW in order to improve LE strength and muscular endurance. Pt demonstrating fatigue and difficulty with final sets of all exercises. Physical Therapy Goals 1. Independent bed mobility. 2. Mod I transfers using appropriate assistive device. 3. Ambulation x 150' with appropriate assistive device. 4. Ascend/descend 3 stairs CGA. 5. Improve TUG to 32 seconds (by 2 seconds to achieve meaningful change). Patient's Goals
--- NOTE | 2018-12-19 15:17 | NUR ---
Occupational Therapy Impression SBA ambulation [id number] with RW. Incorporating dynamic balance and visual scanning retrieving items placed at different heights in hallway. Pt requiring increased v/c's for recognition of items on left vs. right. Introduced UB ther ex, pt unable to complete with L UE due to hx of fx and decreased ROM in R UE as well. Pt declined further ADLs. Continue POC. Occupational Therapy Goals 1. Pt. to perform dressing activities with I. 2. Pt. to perform toileting activities with I. 3. Pt. to perform showering activities with SBA. 4. Pt. to improve Moni Index of ADL score by 2 points. 5. Pt. to perform grooming/ hygiene activities with I, standing sinkfront. Patient's Goal
[2018-12-19 17:10] VITALS: BP 142/82
[2018-12-19] MEDS: CARVEDILOL 3.125 MG TAB PO SCH (20:36)
[2018-12-19] MEDS: INSULIN HUM LISPRO 100 UN/ML 3 ML VIAL SUBQ PRN (20:36)
[2018-12-19] MEDS: metFORMIN HCL 500 MG TAB PO SCH (20:36)
[2018-12-20 07:25] VITALS: BP 151/89
--- NOTE | 2018-12-20 10:55 | Medical Nutrition Therapy ---
Nutrition Anthropometrics Height (Inches): 63 (from med unit admission) Weight (Pounds): 130 Weight (Calculated Kilograms): 59.330 BMI: 23 Santi Nutrition Score: Probably Inadequate Santi Nutrition Risk Score: 17 Dietary Referral Nutrition Risk Factors: Unplanned Loss >10lbs Nutrition Risk Comment: Physical Findings Physical Appearance: WNR Skin Appearance Skin Appearance: Edema Edema Location Modifier: Edema Location: Type of Edema: Degree of Edema: Gastrointestinal Symptoms GI Symtoms: Tube Present: Bowel Sounds: Recent Bowel Pattern: Stool Characteristics: Nutritional Diagnosis Nutritional Risk Acuity 3: Fair Appetite Nutritional Risk Acuity 4: Modified Diet Past Medical History: Hx of DMT2, HTN, A-Fib, Humerus fracture, hip replacement, CVA Nutritional Acuity: 3-Mild Energy Requirement: 1300 (M-StJ) Protein Requirement: 59 (1gm/kg) Fluid Requirement: 1300 (1ml/kcal) Diet Type: Diabetic Nutrition Intervention: Cont diet as ordered, Encourage intake, HS snack Nutrition Monitoring & Eval Nutrition Goals: Eat 75-100% Meal RD Patient Assessment Time: [address] Assessment Type: RD Assessment Patient Nutrition Acuity: 3-Mild Follow Up Date: Dec 24, 2018 Nutritional Comment: 12/20 Pt admitted s/t CVA. Pt was evaluated by SPL and no swallowing issues were observed. pt has dx T2DM and recieving diabetic diet. Pt eating 75-100% of meals. BG ranging 131-223. pt on metformin. Will cont to monitor and encourage intake. MARYJANE MCKEON Dec 20, 2018 09:40
--- NOTE | 2018-12-20 11:34 | ECF History & Physical ---
Transfer Summary ([facility]) Problems: (1) CVA (cerebral vascular accident) Status: Acute Assessment & Plan: She presented with over 24 hours of LUQ visual field deficits bilaterally, word finding difficulty and mild confusion. She was found to have a subacute stroke in the medial posterior right temporal and medial ant erior right occipital region by CT. 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 Neurology recommended no anticoagulation for 7-14 days. She was started on Eliquis overnight 12/17. The family would still like to think about the possibility of Warfarin. She is being transferred to [facility] for further rehabilitation. (2) Afib Status: Chronic Assessment & Plan: Chronically in atrial fibrillation for many years. She has been just on ASA for stroke prophylaxis for a couple years secondary to a serious bleeding event after a fall on warfarin. However, the patient and daughter are considering warfarin again with home monitoring. She is rate controlled on Coreg and it is just at HS. She was followed on telemetry and maintained atrial fibrillation throughout admission. (3) Hypertension Status: Chronic Assessment & Plan: Chronically on Coreg. See above. (4) T2DM (type 2 diabetes mellitus) Status: Chronic Assessment & Plan: Chronically on Metformin. Metformin held 48 hours post CTA. Glucose check AC and HS with SSI level 2 to cover. HgA1c is 7.6. (5) History of humerus fracture Status: Chronic Assessment & Plan: The patient has had multiple fractures on the left with hardware in place. She is limited mobility/use in the arm secondary to it. (6) History of hip replacement Status: Chronic Assessment & Plan: She walks with a significant limp, per her daughter, since the repair. Latest Vital Signs Vital Signs Date Time Temp Pulse Resp B/P (MAP) Pulse Ox O2 Delivery O2 Flow Rate FiO2 12/18/18 10:18 Nasal Cannula 12/18/18 07:37 98.6 78 20 114/73 (87) 93 12/18/18 01:56 0.5 Result Diagram: 12/15/18 1620 12/15/18 162 Condition: Improved Disposition: SNF/NH Treatment Goals and Plan Patient requires residential for End of Life Care/Comfort Care and is ready for admission to Extended Care. Any change in condition is described below. Problem Qualifiers (1) CVA (cerebral vascular accident): CVA mechanism: unspecified Qualified Codes: I63.9 - Cerebral infarction, unspecified (2) Afib: Atrial fibrillation type: chronic Qualified Codes: I48.2 - Chronic atrial fibrillation (3) Hypertension: Hypertension type: essential hypertension Qualified Codes: I10 - Essential (primary) hypertension MATHEW PATE Dec 18, 2018 11:00 <Electronically signed by NEL CROCKER> D/ 1100 1100 1100 EDUARDO CC: ADDENDUM Addendum: MATHEW PATE on 12/19/18 @ 13:03 Eliquis was stopped 12/18. She did receive two doses. However, at this time we will follow recommendation from neurology by waiting two weeks to resume anticoagulation secondary to increased risk of hemorrhagic stroke. D/T: 7 7 EDUARDO CC: AUNG
--- NOTE | 2018-12-20 12:20 | NUR ---
Physical Therapy Impression Pt completed 3 sit<>Stand trnsfrs during treatment session to address habituation of reaching back for chair prior to sitting and safety awareness with pushing up from chair as well, vs pulling on walker. Pt tolerated ambulation to dining room for noon meal and pt's son was present at end of session. Physical Therapy Goals 1. Independent bed mobility. 2. Mod I transfers using appropriate assistive device. 3. Ambulation x 150' with appropriate assistive device. 4. Ascend/descend 3 stairs CGA. 5. Improve TUG to 32 seconds (by 2 seconds to achieve meaningful change). Patient's Goals
--- NOTE | 2018-12-20 13:34 | NUR ---
Occupational Therapy Impression Pt. scored 24/30 on this examination indicating no cognitive impairment (24-30). Pt. unable to state the day of the week or month as well as recall 3 objects. Pt. also provided with fall prevention education. Continue with POC. Occupational Therapy Goals 1. Pt. to perform dressing activities with I. 2. Pt. to perform toileting activities with I. 3. Pt. to perform showering activities with SBA. 4. Pt. to improve Moni Index of ADL score by 2 points. 5. Pt. to perform grooming/ hygiene activities with I, standing sinkfront. Patient's Goal
[2018-12-20 16:33] VITALS: BP 142/85
--- NOTE | 2018-12-20 16:49 | NUR ---
per report, pt will need bed alarm at [facility] as she forgets to call for help Addendum: 12/20/18 at 1950 by MORRO CHEEK RN pt attempted to get our of her chair unassisted. helped pt to the BR and to bed. bed alarm on
[2018-12-20] MEDS: INSULIN HUM LISPRO 100 UN/ML 3 ML VIAL SUBQ PRN (20:09)
[2018-12-20] MEDS: metFORMIN HCL 500 MG TAB PO SCH (20:10)
[2018-12-20] MEDS: CARVEDILOL 3.125 MG TAB PO SCH (20:10)
[2018-12-21 07:30] VITALS: BP 152/75
[2018-12-21] MEDS: INSULIN HUM LISPRO 100 UN/ML 3 ML VIAL SUBQ PRN ×2 (08:13→20:42)
[2018-12-21 15:20] VITALS: BP 145/73
--- NOTE | 2018-12-21 15:24 | NUR ---
Tabs used due to finding patient attempting to get out of chair by self on numerous occasions. I could hear noise in room before patient was standing. Did not use tabs while family here. She has not used call light once this shift, despite education.
[2018-12-21] MEDS: CARVEDILOL 3.125 MG TAB PO SCH (20:42)
[2018-12-21] MEDS: metFORMIN HCL 500 MG TAB PO SCH (20:42)
[2018-12-22 07:10] VITALS: BP 159/92
[2018-12-22] MEDS: INSULIN HUM LISPRO 100 UN/ML 3 ML VIAL SUBQ PRN ×2 (12:11→20:47)
[2018-12-22 16:29] VITALS: BP 142/80
[2018-12-22] MEDS: metFORMIN HCL 500 MG TAB PO SCH (20:47)
[2018-12-22] MEDS: CARVEDILOL 3.125 MG TAB PO SCH (20:47)
[2018-12-23 07:25] VITALS: BP 137/85
--- NOTE | 2018-12-23 11:01 | Medical Nutrition Therapy ---
Nutrition Anthropometrics Height (Inches): 63 (from med unit admission) Weight (Pounds): 130 Weight (Calculated Kilograms): 59.330 BMI: 23 Santi Nutrition Score: Probably Inadequate Santi Nutrition Risk Score: 17 Dietary Referral Nutrition Risk Factors: Unplanned Loss >10lbs Nutrition Risk Comment: Physical Findings Physical Appearance: WNR Skin Appearance Skin Appearance: Edema Edema Location Modifier: Left Edema Location: Foot Type of Edema: Degree of Edema: Gastrointestinal Symptoms GI Symtoms: Tube Present: Bowel Sounds: Recent Bowel Pattern: Stool Characteristics: Nutritional Diagnosis Nutritional Risk Acuity 3: Fair Appetite Nutritional Risk Acuity 4: Modified Diet Past Medical History: Hx of DMT2, HTN, A-Fib, Humerus fracture, hip replacement, CVA Nutritional Acuity: 3-Mild Energy Requirement: 1300 (M-StJ) Protein Requirement: 59 (1gm/kg) Fluid Requirement: 1300 (1ml/kcal) Diet Type: Diabetic Nutrition Intervention: Cont diet as ordered, Encourage intake, HS snack Nutrition Monitoring & Eval Nutrition Goals: Eat 75-100% Meal Nutrition Follow-Up: Good Intake RD Patient Assessment Time: [address] Assessment Type: RD Re-Assessment Patient Nutrition Acuity: 3-Mild Follow Up Date: Dec 31, 2018 Nutritional Comment: 12/20 Pt admitted s/t CVA. Pt was evaluated by SPL and no swallowing issues were observed. pt has dx T2DM and recieving diabetic diet. Pt eating 75-100% of meals. BG ranging 131-223. pt on metformin. Will cont to monitor and encourage intake. ANASTACIA 12/23 Pt cont on diabetic diet. Intake average 90% of small to regular potions. BG ranging 110-248. No new wt. Will cont to monitor and encourage intake. MARYJANE Llamas Dec 23, 2018 11:00
[2018-12-23] MEDS: INSULIN HUM LISPRO 100 UN/ML 3 ML VIAL SUBQ PRN ×2 (12:08→20:46)
--- NOTE | 2018-12-23 12:11 | NUR ---
Occupational Therapy Impression Pt alert and agreeable to OT tx. Reports no concerns or needs to be addressed prior to discharge home. SBA ambulation [id number] with RW. Independent LB dressing. Mod (I) tub transfer with extended tub bench. Pt reports daughter assist with bathing. SBA ambulation in room with no AD and "furniture crawling" as pt will likely do at home. Pt nearing OT goals. Occupational Therapy Goals 1. Pt. to perform dressing activities with I. 2. Pt. to perform toileting activities with I. 3. Pt. to perform showering activities with SBA. 4. Pt. to improve Moni Index of ADL score by 2 points. 5. Pt. to perform grooming/ hygiene activities with I, standing sinkfront. Patient's Goal
--- NOTE | 2018-12-23 12:18 | Miscellaneous Provider Note ---
Miscellaneous Provider Note Note ADDENDUM: ECF Transfer Summary erroneously states that Mrs. Tijerina was admitted to [facility] ECF for Comfort care/end-of-life care. This is not the case. She has been admitted for ongoing rehabilitative care. ANGEL RUELAS MD Dec 23, 2018 12:18
[2018-12-23 16:40] VITALS: BP 135/72
[2018-12-23] MEDS: metFORMIN HCL 500 MG TAB PO SCH (20:46)
[2018-12-23] MEDS: CARVEDILOL 3.125 MG TAB PO SCH (20:46)
[2018-12-24 07:30] VITALS: BP 133/79
[2018-12-24] MEDS: INSULIN HUM LISPRO 100 UN/ML 3 ML VIAL SUBQ PRN (07:59)
--- NOTE | 2018-12-24 08:20 | NUR ---
Call from Ronald Bill OT reporting pt requesting staff contact daughter Kierra to invite to her care conference today. AUSTIN spoke with Kierra via phone and notified of conference, Kierra already aware and plans to come today- reporting she has several questions for the care team.
--- NOTE | 2018-12-24 08:51 | NUR ---
Occupational Therapy Impression Pt dressed upon OT arrival. Declining need for engagement in ADLs. Pt reports feeling ready to discharge home at current level of function, unsure if she would like HH services. CGA ambulation with cane. Pt with decreased balance and (I)ly electing to utilize RW for mobility. SBA ambulation x100ft with RW and use of walker tray for transporting coffee. Pt hesitant to obtain more AE, will provide information so that pt can obtain items if desired. Plan to discuss discharge plans at care conference this afternoon. Occupational Therapy Goals 1. Pt. to perform dressing activities with I. 2. Pt. to perform toileting activities with I. 3. Pt. to perform showering activities with SBA. 4. Pt. to improve Moni Index of ADL score by 2 points. 5. Pt. to perform grooming/ hygiene activities with I, standing sinkfront. Patient's Goal
--- NOTE | 2018-12-24 10:10 | NUR ---
TABs on today due to patient having a history of falling and not being oriented to situation. Patient gets up without calling frequently.
--- NOTE | 2018-12-24 14:03 | NUR ---
Physical Therapy Impression Pt recvd after care conference with daughter available to observe session. Pt is modified indep with sit to/from stand transfers, bed mobility and ambulation with use of 4WW x 200'. Pt completed up/down 6 small steps with use of rail and modified indep as well. PT goals met and pt ready for discharge from a mobility stand point. Physical Therapy Goals 1. Independent bed mobility. 2. Mod I transfers using appropriate assistive device. 3. Ambulation x 150' with appropriate assistive device. 4. Ascend/descend 3 stairs CGA. 5. Improve TUG to 32 seconds (by 2 seconds to achieve meaningful change). Patient's Goals
--- NOTE | 2018-12-24 14:31 | NUR ---
5-day and ME MDS completed with pt. C: 07, D: 00, E: no concerns, Q: referral sent for [facility] at [place], pt will be returning to community.
--- NOTE | 2018-12-24 14:37 | NUR ---
Home oxygen - chose [facility], contacted to set up O2 1L per NC at night. Contacted company and provided them with contact information.
[2018-12-24] MEDS ORDERED: CAR3.125 PO (16:32)
--- NOTE | 2018-12-24 16:46 | Hospitalist Depart ---
Discharge Summary Reason for Hosp/Final Diag: (1) CVA (cerebral vascular accident) Status: Acute Hospital Course & Plan: She presented with over 24 hours of LUQ visual field de ficits bilaterally, word finding difficulty and mild confusion. She was found to have a subacute stroke in the medial posterior right temporal and medial anterior right occipital region by CT. 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 They recommended no anticoagulation for 7-14 days. The family would possibly like to consider warfarin with home INR monitoring, but will have the patient fill Eliquis for now to start on 12/29. (2) Atrial fibrillation Status: Chronic Hospital Course & Plan: Chronically in atrial fibrillation for many years. She had been just on ASA for stroke prophylaxis for a couple years secondary to a serious bleeding event after a fall on warfarin. Eliquis for now for stroke prophylaxis. See above. She is rate controlled on Coreg. (3) Hypertension Status: Chronic Hospital Course & Plan: Chronically on Coreg. See above. (4) T2DM (type 2 diabetes mellitus) Status: Chronic Hospital Course & Plan: Chronically on Metformin. (5) History of humerus fracture Status: Chronic Hospital Course & Plan: The patient has had multiple fractures on the left with hardware in place. She is limited mobility/use in the arm secondary to it. (6) History of hip replacement Status: Chronic Hospital Course & Plan: She walks with a significant limp, per her daughter, since the repair. Departure Weight (Pounds): 130 Weight (Ounces): 12.8 Condition: Improved Discharge: Home Health PT/OT Follow Up For: PT For Strengthening Home Health RN Follow Up For: Nursing Assessment Discharge Instructions Home Meds Active Scripts Apixaban (ELIQUIS) 2.5 Mg Tablet, 2.5 MG PO BID for 30 Days, Prov:PUSHPA RAE MD 12/24/18 Carvedilol (CARVEDILOL) 3.125 Mg Tab, 3.125 MG PO QHS, #60 TAB Prov:PUSHPA RAE MD 12/24/18 Metformin Hcl (METFORMIN HCL) 1,000 Mg Tablet, 1 TAB PO HS for 90 Days, #180 TAB 4 Refills Prov:PUSHPA RAE MD 12/15/18 Discontinued Reported Medications Aspirin (ASPIRIN) 325 Mg Tablet, 1 TAB PO HS, TAB 04/04/18 Carvedilol (Coreg) 12.5 Mg Tablet, 1 TAB PO HS 08/02/11 Diet: Regular Special Instructions: Dr. Lomeli - January 02 - 1:30 PM Copies to: JASON LOMELI MD ; Venous Thromboembolism Antithrombotics Is Pt On Any Antithrombotics?: Yes [id number] Certification Face to Face Home Health Certification Patient's Primary Care Provider: Jason Lomeli MD Institutional Provider conducted the [id number] encounter. Electronic Undersigning Physician Certifies Home Health. I certify that the patient has been under my care and that I had a [id number] encounter that meets the physician [id number] encounter requirements with this patient. This patient is home-bound due to safety issues and continues to require assistance with ADL's. I certify that based on my findings, that Nursing, Aides and the following Home Health services are medically necessary: Medical Necessity: Nursing, Rehab Date Face to Face Conducted: Dec 24, 2018 PUSHPA RAE MD Dec 24, 2018 16:46
[2018-12-24] MEDS ORDERED: APIX2.5T PO (16:51)
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
--- NOTE | 2018-12-26 18:15 | PT ECF NOTE ---
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 Physical Therapy Evaluation Date: 12/18/18 SUBJECTIVE: Prior Hospitalization: COUNTS INCLUDE 234 BEDS AT THE [facility] acute 12/15/18-12/18/18 Prior Level of Function: Pt was Mod I with functional mobility with use of cane. Pt had assistance with bathing from her daughter and cooking from her son-in-law. Prior Living Status: Single level house, Alone, Assist by family Community Services: No known needs Home Accessibility: 3 Stairs with rails/"rope" Equipment Owned: Front wheeled walker, Cane Medical Complications/Past Medical History: See GoGuide for full list. 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 Problem List/Current Limitations: None noted Short Term Goals: (Met) 1. Independent bed mobility. 2. Mod I transfers using appropriate assistive device. 3. Ambulation x 150' with appropriate assistive device. 4. Ascend/descend 3 stairs CGA. 5. Improve TUG to 32 seconds (by 2 seconds to achieve meaningful change). Supervisor [place] Goals: Return to living semi-independently Patient Goals: Return home [facility] Rehabilitation Prognosis: Good Barriers for Discharge: none identified PLAN: Pt plans to d/c home with assist from daughter initially but does have 4WW and will continue with therapy as scheduled. Thank you for this referral. If you have any questions, concerns, or comments about this report or plan, please contact me at . H. Vandana Benites, PT, MPT, OMS MISHAD
== END 2018-12-24 16:25 | disposition home health service (06) | DRG 66 ==
LOC: ECF 10:35
PROVIDERS: ADMIT Internal Medicine; ATTEND Internal Medicine
DX: I63.9 Cerebral infarction, unspecified (principal); I48.2 Chronic atrial fibrillation; I10 Essential (primary) hypertension; E11.9 Type 2 diabetes mellitus without complications; Z79.84 Long term (current) use of oral hypoglycemic drugs; Z90.49 Acquired absence of other specified parts of digestive tract; Z90.710 Acquired absence of both cervix and uterus; Z79.82 Long term (current) use of aspirin
CPT/HCPCS: 36416; 82948; 97162; 97165